=== PATIENT | female | born 1970 | race African-American/Black ===

== ENCOUNTER 2022-06-08 16:48 | Inpatient (IN) | payer OTHER ==
[2022-06-08 17:14] VITALS: BMI 23.3
[2022-06-08] MEDS ORDERED: cloNIDine HCL 0.1 MG TABLET PO ONE ×2 (19:47→23:00)
[2022-06-08] MEDS ORDERED: LORazepam 0.5 MG TABLET PO ONE (19:53)
[2022-06-08] MEDS ORDERED: amLODIPine BESYLATE 5 MG TABLET (FP) PO ONE (20:05)
[2022-06-08] MEDS ORDERED: amLODIPine BESYLATE 5 MG TABLET (FP) ONE (20:12)
[2022-06-08] MEDS ORDERED: ONDANSETRON *ODT* 4 MG TABLET SL PRN (20:19)
[2022-06-08] MEDS ORDERED: NICOTINE 10 MG CARTRIDGE (INHALER) IH PRN (20:19)
[2022-06-08] MEDS ORDERED: POLYETHYLENE GLYCOL (HEALTHYLAX) 3350 17 GM PACKET PO PRN (20:19)
[2022-06-08] MEDS ORDERED: LOPERAMIDE HCL 2 MG CAPSULE PO PRN (20:19)
[2022-06-08] MEDS ORDERED: NALOXONE HCL (KLOXXADO) 8 MG SPRAY NS PRN (20:19)
[2022-06-08] MEDS ORDERED: BENZOCAINE/MENTHOL (CHLORASEPTIC ) LOZENGE MM PRN (20:19)
[2022-06-08] MEDS ORDERED: ACETAMINOPHEN 325 MG TABLET (FP) PO PRN (20:19)
[2022-06-08] MEDS ORDERED: MAG HYDROX/AL HYDROX/SIMETH 30 ML UNIT-DOSE CUP PO PRN (20:19)
[2022-06-08] MEDS ORDERED: MAGNESIUM HYDROX 2400MG/30ML ORAL SUSPENSION 30 ML CUP PO PRN (20:19)
[2022-06-08] MEDS ORDERED: METHOCARBAMOL 500 MG TABLET PO PRN (20:19)
[2022-06-08] MEDS ORDERED: DICYCLOMINE HCL 10 MG CAPSULE PO PRN (20:19)
[2022-06-08] MEDS ORDERED: cloNIDine HCL 0.1 MG TABLET ONE (23:02)
[2022-06-08] MEDS: THIAMINE HCL 100 MG TABLET (FP) PO SCH (23:24)
[2022-06-08] MEDS: MELATONIN 5 MG TABLETS PO SCH (23:24)
[2022-06-09 09:36] LABS: HEMATOCRIT 39.2 % (32.4-45.2); HEMOGLOBIN 12.4 GM/dL (10.7-15.3); MCH 26.3 pg (25.7-33.7); MCHC 31.6 g/dl (32.0-36.0); MEAN CELL VOLUME 83.3 fl (80-96); MEAN PLT VOLUME 9.9 fl (7.5-11.1); PLATELET COUNT 293 10^3/uL (134-434); RBC 4.71 M/mm3 (3.60-5.2); RDW 15.1 % (11.6-15.6); WHITE BLOOD COUNT 6.4 K/mm3 (4.0-10.0)
[2022-06-09] MEDS ORDERED: LISINOPRIL 10 MG TABLET PO SCH (10:00)
[2022-06-09] MEDS: hydrOXYzine PAMOATE 25 MG CAPSULE (FP) PO PRN ×2 (10:13→17:48)
[2022-06-09] MEDS: PRENATAL VITAMINS W/ FOLIC ACID TABLET (FP) PO SCH (10:13)
[2022-06-09 10:24] LABS: ALBUMIN 3.1 g/dl (3.4-5.0); BLOOD UREA NITROGEN 21.5 mg/dL (7-18); CALCIUM 8.7 mg/dL (8.5-10.1)
[2022-06-09 10:28] LABS: CREATININE 0.9 mg/dL (0.55-1.3)
[2022-06-09 10:30] LABS: BILIRUBIN,TOTAL 0.2 mg/dL (0.2-1); TOT PROT 6.6 g/dl (6.4-8.2)
[2022-06-09] MEDS: ACETAMINOPHEN 325 MG TABLET (FP) PO PRN (21:20)
[2022-06-09] MEDS ORDERED: amLODIPine BESYLATE 10 MG TABLET (FP) PO SCH (22:00)
[2022-06-09] MEDS: MELATONIN 5 MG TABLETS PO SCH (22:54)
[2022-06-09] MEDS: THIAMINE HCL 100 MG TABLET (FP) PO SCH (22:54)
[2022-06-10] MEDS ORDERED: LISINOPRIL 10 MG TABLET PO SCH ×2 (07:00)
[2022-06-10 09:02] VITALS: RESP 18
[2022-06-10] MEDS: PRENATAL VITAMINS W/ FOLIC ACID TABLET (FP) PO SCH ×2 (10:21→11:00)
[2022-06-10] MEDS ORDERED: cloNIDine HCL 0.1 MG TABLET PO ONE (10:46)
[2022-06-10] MEDS: ACETAMINOPHEN 325 MG TABLET (FP) PO PRN (10:53)
[2022-06-10 11:46] VITALS: TEMP 97.1
[2022-06-10] MEDS ORDERED: LISINOPRIL 20 MG TABLET PO ONE (12:10)
[2022-06-10 14:01] VITALS: BP 153/97; PULSE 88
[2022-06-11] MEDS ORDERED: LISINOPRIL 20 MG TABLET PO SCH (10:00)
== END 2022-06-10 13:57 | disposition other institution (70) | DRG 773 ==
LOC: YASAS 16:48 → UNDOADMIN 21:54 → Y3N 21:54 → Y6N 06-10 11:35 → Y3N 06-10 11:35 → Y6N 06-10 11:39 → Y3N 06-10 11:39 → UNDODISIN 06-10 13:57
PROVIDERS: ADMIT Allergy & Immunology; ATTEND Surgery
PROC: HZ2ZZZZ Detoxification Services for Substance Abuse Treatment (ICD-10-PCS; principal; 2022-06-08)
DX: F11.23 Opioid dependence with withdrawal (principal); F14.20 Cocaine dependence, uncomplicated; F12.20 Cannabis dependence, uncomplicated; F17.210 Nicotine dependence, cigarettes, uncomplicated; F31.70 Bipolar disorder, currently in remission, most recent episode unspecified; G47.00 Insomnia, unspecified; I10 Essential (primary) hypertension; E11.9 Type 2 diabetes mellitus without complications; R94.31 Abnormal electrocardiogram [ECG] [EKG]; Z91.199 Patient's noncompliance with other medical treatment and regimen due to unspecified reason
CPT/HCPCS: 36415; 70450-TC; 71045-TC-FY; 80053; 81025; 82962; 83735; 84100; 84484; 85025; 85027; 86593; 86780; 93005; 93010; 93306-TC; C9803-CS; G0378; U0003; U0005